=== PATIENT | male | born 1980 | race Caucasian/White ===

== ENCOUNTER 2017-05-24 09:45 | Emergency (ER) | payer BC ==
[2017-05-24 10:22] VITALS: BP 128/73
--- NOTE | 2017-05-24 10:39 | UC ---
Ear Complaint HPI - HPI Summary HPI Summary: pt presents with c/o left ear discomfort, fullness, occasional dizziness and "popping". Pt has history of cerumen impaction denies fever or chills, nasal congestion or sinus pressure. - History of Current Complaint Chief Complaint: UCEar Stated Complaint: LEFT EAR COMPLAINT Time Seen by Provider: 05/24/17 10:15 Hx Obtained From: Patient Onset/Duration: Gradual Onset, Lasting Weeks, Still Present Severity Initially: Mild Severity Currently: Mild Associated Signs/Symptoms: Positive: Foreign Body Sensation - Allergies/Home Medications Allergies/Adverse Reactions: Allergies Allergy/AdvReac Type Severity Reaction Status Date / Time Penicillins Allergy Intermediate Rash Verified 05/24/17 10:10 PMH/Surg Hx/FS Hx/Imm Hx Previously Healthy: Yes - Surgical History Surgical History: None - Family History Known Family History: Positive: Cardiac Disease - Social History Occupation: Employed Full-time Lives: With Family Alcohol Use: Occasionally Substance Use Type: None Smoking Status (MU): Never Smoked Tobacco Have You Smoked in the Last Year: No - Immunization History Most Recent Influenza Vaccination: 08/04 Review of Systems Constitutional: Negative Skin: Negative Eyes: Negative ENT: Ear Ache - left Respiratory: Negative Cardiovascular: Negative Gastrointestinal: Negative Genitourinary: Negative Motor: Negative Neurovascular: Negative Musculoskeletal: Negative Neurological: Negative Psychological: Negative All Other Systems Reviewed And Are Negative: Yes Physical Exam Triage Information Reviewed: Yes Appearance: Well-Appearing Vital Signs: Initial Vital Signs Temp 98.6 F 05/24/17 10:10 Pulse 64 05/24/17 10:10 Resp 18 05/24/17 10:10 BP 128/73 05/24/17 10:10 Pulse Ox 99 05/24/17 10:10 Vital Signs Reviewed: Yes Eye Exam: Normal ENT Exam: Other ENT: Positive: TMs normal, Other: - cerumen in bilateral ears, TM visible Dental Exam: Normal Neck exam: Normal Respiratory Exam: Normal Cardiovascular Exam: Normal Musculoskeletal Exam: Normal Neurological Exam: Normal Psychological Exam: Normal Skin Exam: Normal Ear Complaint Course/Dx - Differential Dx/Diagnosis Differential Diagnosis/HQI/PQRI: Cerumen Impaction, Other - ear ache Provider Diagnoses: ear ache left ear. cerumen bilateral ears Discharge - Discharge Plan Condition: Stable Disposition: HOME Patient Education Materials: Earache (ED) Referrals: Praveen Sahni MD [Primary Care Provider] - If Needed
== END 2017-05-24 11:16 | disposition home or self-care (01) ==
LOC: UCCORT 09:45
DX: H92.02 Otalgia, left ear (principal); H61.23 Impacted cerumen, bilateral; Z88.0 Allergy status to penicillin
CPT/HCPCS: 99213; G0463

== ENCOUNTER 2017-08-05 17:30 | Emergency (ER) | payer BC ==
[2017-08-05 18:00] VITALS: BP 124/67
[2017-08-05] MEDS ORDERED: Lidocaine 1% MPF* 2 ML VIAL INJ ONE (18:47)
[2017-08-05] MEDS ORDERED: Tetan/Diph/Pertus SYR(Tdap)* 0.5 ML SYR(BOOSTRIX) use SYR IM ONE (18:48)
--- NOTE | 2017-08-05 18:58 | UC ---
Laceration HPI - HPI Summary HPI Summary: patient has a 4 cm lac to the right mulligan, slipped an hit the mulligan on a wood box , unknown tetanus date. bleeding is controlled. - History Of Current Complaint Chief Complaint: UCLaceration Stated Complaint: RIGHT MULLIGAN LACERATION Time Seen by Provider: 08/05/17 18:38 Hx Obtained From: Patient Mechanism Of Injury: Blunt Trauma Onset/Duration: Sudden Onset, Lasting Hours Severity: Mild - Allergies/Home Medications Allergies/Adverse Reactions: Allergies Allergy/AdvReac Type Severity Reaction Status Date / Time Penicillins Allergy Intermediate Rash Verified 08/05/17 18:00 PMH/Surg Hx/FS Hx/Imm Hx Previously Healthy: Yes - Surgical History Surgical History: None - Family History Known Family History: Positive: Cardiac Disease - Social History Alcohol Use: Occasionally Substance Use Type: None Smoking Status (MU): Never Smoked Tobacco Have You Smoked in the Last Year: No - Immunization History Most Recent Influenza Vaccination: no Review of Systems Constitutional: Negative Skin: Other - laceration ENT: Negative Respiratory: Negative Cardiovascular: Negative Gastrointestinal: Negative Genitourinary: Negative Motor: Negative Neurovascular: Negative Musculoskeletal: Negative Neurological: Negative Psychological: Negative Is Patient Immunocompromised?: No All Other Systems Reviewed And Are Negative: Yes Physical Exam Triage Information Reviewed: Yes Appearance: Well-Appearing, Well-Nourished, Pain Distress Vital Signs: Initial Vital Signs Temp 98 F 08/05/17 17:54 Pulse 71 08/05/17 17:54 Resp 14 08/05/17 17:54 BP 124/67 08/05/17 17:54 Pulse Ox 100 08/05/17 17:54 Vital Signs Reviewed: Yes Eye Exam: Normal ENT Exam: Normal Dental Exam: Normal Neck exam: Normal Respiratory Exam: Normal Cardiovascular Exam: Normal Cardiovascular: Positive: RRR, No Murmur, Pulses Normal Abdominal Exam: Normal Abdomen Description: Positive: Nontender, No Organomegaly, Soft Bowel Sounds: Positive: Present Musculoskeletal Exam: Normal Musculoskeletal: Positive: Strength Intact, ROM Intact, No Edema Neurological Exam: Normal Neurological: Positive: Alert, Muscle Tone Normal Skin: Positive: Other - laceration to the right lower leg, 4 cm, Laceration Repair - Laceration Repair 1 Description: Linear Laceration Size After Repair: Length (cm) - 4 Modified For Repair: No Type Injection: Local Anesthesia Used: 1.0% Lido Cleansing Completed Via Routine Prep: Yes Irrigation With Pressure Irrigation Device: Yes Closure Material: Sutures - 5 Closure Method: Single Layer Suture Of: Skin Suture Type: Nylon Laceration Course/Dx - Course/Dx Course Of Treatment: hx obtained, exam performed ,meds reviewed, laceration cleansed, repaired and dressed, tetanus given - Differential Dx - Laceration/Wound Differental Diagnoses: Laceration Provider Diagnoses: laceration, simple greater than 2.5 cm of right lower leg Discharge - Discharge Plan Condition: Stable Disposition: HOME Prescriptions: Cephalexin CAP* [Keflex CAP*] 500 mg PO BID #14 cap Patient Education Materials: Laceration (ED) Referrals: Praveen Sahni MD [Primary Care Provider] - Additional Instructions: 1. take the medication as prescribed. 2. Keep area clean and dry 3. cover and protect with non stick pad, do not use neosporin, 4. Remove in 7-10 days you can return her or go to the Primary physician
== END 2017-08-05 19:47 | disposition home or self-care (01) ==
LOC: UCCORT 17:30
DX: S81.811A Laceration without foreign body, right lower leg, initial encounter (principal); W22.8XXA Striking against or struck by other objects, initial encounter; Y93.9 Activity, unspecified; Y92.9 Unspecified place or not applicable; Z23 Encounter for immunization; Z88.0 Allergy status to penicillin
CPT/HCPCS: 12002; 90471; 90715; 99212; G0463

== ENCOUNTER 2018-10-10 10:41 | Emergency (ER) | payer BC ==
[2018-10-10 11:16] VITALS: BP 125/73
--- NOTE | 2018-10-10 11:25 | UC ---
Respiratory Complaint HPI - HPI Summary HPI Summary: 38-year-old male comes to clinic with a chief complaint of upper respiratory tract infection symptoms for 3 weeks.He started out with runny nose sore throat and cough. Over the last several days is feeling like it's gone into his chest. It's making him somewhat short of breath. Having a hard time bringing up any sputum. When he is taking a shower with steam the phlegm does loosen up and that helps him breathe better. No recent fevers. No wheezing does not have a history of asthma. - History of Current Complaint Chief Complaint: UCRespiratory Stated Complaint: COUGH, CONGESTION Time Seen by Provider: 10/10/18 11:17 Pain Intensity: 0 - Allergies/Home Medications Allergies/Adverse Reactions: Allergies Allergy/AdvReac Type Severity Reaction Status Date / Time Penicillins Allergy Rash Verified 10/10/18 11:10 Home Medications: Home Medications Decongestant Med PRN 10/10/18 [History] PMH/Surg Hx/FS Hx/Imm Hx Previously Healthy: Yes - Surgical History Surgical History: None - Family History Known Family History: Positive: Cardiac Disease - Social History Alcohol Use: Occasionally Substance Use Type: None Smoking Status (MU): Never Smoked Tobacco Have You Smoked in the Last Year: No - Immunization History Most Recent Influenza Vaccination: no Review of Systems All Other Systems Reviewed And Are Negative: Yes Constitutional: Positive: Negative Skin: Positive: Negative Eyes: Positive: Negative ENT: Positive: Sore Throat, Nasal Discharge Respiratory: Positive: Shortness Of Breath, Cough Cardiovascular: Positive: Negative Gastrointestinal: Positive: Negative Motor: Positive: Negative Neurovascular: Positive: Negative Musculoskeletal: Positive: Negative Neurological: Positive: Negative Psychological: Positive: Negative Is Patient Immunocompromised?: No Physical Exam Triage Information Reviewed: Yes Appearance: No Pain Distress, Well-Nourished, Ill-Appearing - mild Vital Signs: Initial Vital Signs Temp 97.6 F 10/10/18 11:13 Pulse 55 10/10/18 11:13 Resp 16 10/10/18 11:13 BP 125/73 10/10/18 11:13 Pulse Ox 100 10/10/18 11:13 Vital Signs Reviewed: Yes Eye Exam: Normal Eyes: Positive: Conjunctiva Clear ENT: Positive: Pharyngeal erythema, Nasal congestion, TMs normal Neck exam: Normal Neck: Positive: Supple Respiratory: Positive: Lungs clear, Normal breath sounds, No respiratory distress Cardiovascular: Positive: RRR Musculoskeletal Exam: Normal Musculoskeletal: Positive: Strength Intact, ROM Intact Neurological Exam: Normal Neurological: Positive: Alert, Muscle Tone Normal Psychological Exam: Normal Psychological: Positive: Age Appropriate Behavior Skin Exam: Normal UC Diagnostic Evaluation - Laboratory O2 Sat by Pulse Oximetry: 100 Respiratory Course/Dx - Course Course Of Treatment: No consolidation on lung exam today to suggest pneumonia. Symptoms been going on for 3 weeks therefore we'll treat with Jeffrey azithromycin. - Differential Dx/Diagnosis Provider Diagnosis: Bronchitis Discharge - Sign-Out/Discharge Documenting (check all that apply): Patient Departure All imaging exams completed and their final reports reviewed: No Studies - Discharge Plan Condition: Stable Disposition: HOME Prescriptions: Azithromyxin DENNY (NF) [Z-Denny (Zithromax) 250 mg tabs #6] 2 tab PO .TODAY, THEN 1 DAILY #6 tab Patient Education Materials: Acute Bronchitis (ED) Referrals: Praveen Sahni MD [Primary Care Provider] - Additional Instructions: FOLLOW UP WITH YOUR DOCTOR IF NOT COMPLETELY IMPROVED. GET RECHECKED FOR ANY WORSENING OF YOUR CONDITION OR QUESTIONS OR CONCERNS. - Billing Disposition and Condition Condition: STABLE Disposition: Home
== END 2018-10-10 11:29 | disposition home or self-care (01) ==
LOC: UCCORT 10:41
DX: J40 Bronchitis, not specified as acute or chronic (principal)
CPT/HCPCS: 99212; G0463

== ENCOUNTER 2018-12-13 14:45 | Emergency (ER) | payer BC ==
[2018-12-13 15:05] VITALS: BP 153/78
--- NOTE | 2018-12-13 15:23 | ED ---
Throat Pain/Nasal Congestion - HPI Summary HPI Summary: hx. of intermittent dizzyness, pressure in the left ear, dizzyness associated with change in position. no hx. of tinnitus, no change in hearing. This has occurred off and on for the last several years. - History of Current Complaint Chief Complaint: UCEar Time Seen by Provider: 12/13/18 15:09 Hx Obtained From: Patient Onset/Duration: Gradual Onset Severity: Moderate Associated Signs And Symptoms: Positive: Negative - Allergies/Home Medications Allergies/Adverse Reactions: Allergies Allergy/AdvReac Type Severity Reaction Status Date / Time Penicillins Allergy Rash Verified 12/13/18 15:02 PMH/Surg Hx/FS Hx/Imm Hx Previously Healthy: Yes Endocrine/Hematology History: Denies: Hx Diabetes, Hx Thyroid Disease Cardiovascular History: Denies: Hx Hypertension, Hx Pacemaker/ICD Respiratory History: Denies: Hx Asthma, Hx Lung Cancer Musculoskeletal History: Denies: Hx Rheumatoid Arthritis, Hx Osteoporosis Sensory History: Denies: Hx Hearing Aid Psychiatric History: Denies: Hx Panic Disorder Infectious Disease History: No Infectious Disease History: Denies: Traveled Outside the [place] in Last 30 Days - Family History Known Family History: Positive: Cardiac Disease - Social History Alcohol Use: Occasionally Substance Use Type: Reports: None Smoking Status (MU): Never Smoked Tobacco Have You Smoked in the Last Year: No Review of Systems Constitutional: Negative Eyes: Negative ENT: Other Positive: Other - pressure in left ear, and sense of dizzyness Cardiovascular: Negative Respiratory: Negative Gastrointestinal: Negative Genitourinary: Negative Musculoskeletal: Negative All Other Systems Reviewed And Are Negative: Yes Physical Exam Triage Information Reviewed: Yes Vital Signs On Initial Exam: Initial Vitals Temp Pulse Resp BP Pulse Ox 36.6 C 74 16 153/78 100 12/13/18 15:03 12/13/18 15:03 12/13/18 15:03 12/13/18 15:03 12/13/18 15:03 Vital Signs Reviewed: Yes Appearance: Positive: Well-Appearing Skin: Positive: Warm, Dry Head/Face: Positive: Normal Head/Face Inspection Eyes: Positive: Normal, Other: - negative nystagmus ENT: Positive: Pharynx normal, TMs normal - on left, right with cerumin, Uvula midline Respiratory/Lung Sounds: Positive: Clear to Auscultation Cardiovascular: Positive: Normal Abdomen Description: Positive: Nontender Bowel Sounds: Positive: Present Diagnostics - Vital Signs Vital Signs Temp Pulse Resp BP Pulse Ox 12/13/18 15:03 36.6 C 74 16 153/78 100 - Laboratory Lab Statement: Any lab studies that have been ordered have been reviewed, and results considered in the medical decision making process. EENT Course/Dx - Diagnoses Provider Diagnoses: Benign paroxysmal positional vertigo Discharge - Sign-Out/Discharge Documenting (check all that apply): Patient Departure All imaging exams completed and their final reports reviewed: No Studies - Discharge Plan Condition: Good Disposition: HOME Prescriptions: Fluticasone NASAL SPRAY 50MCG* [Flonase NASAL SPRAY 50MCG*] 2 spray BOTH NARES DAILY #1 btl Patient Education Materials: Dizziness (ED), Meniere Disease (ED) Referrals: Praveen Sahni MD [Primary Care Provider] - Uziel Joy MD [Medical Doctor] - - Billing Disposition and Condition Condition: GOOD Disposition: Home
== END 2018-12-13 15:36 | disposition home or self-care (01) ==
LOC: UCCORT 14:45
DX: H81.12 Benign paroxysmal vertigo, left ear (principal); Z88.0 Allergy status to penicillin
CPT/HCPCS: 99212; G0463